=== PATIENT | female | born 1975 | race Caucasian/White ===

== ENCOUNTER 2018-03-12 14:45 | Emergency (ER) | payer OTHER ==
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
[2018-03-12 17:38] VITALS: BP 114/76; PULSE 62; RESP 16; TEMP 98.4
[2018-03-12 17:45] VITALS: O2SAT 100
== END 2018-03-12 17:40 | disposition home or self-care (01) ==
LOC: C.ER 14:45
DX: S46.912A Strain of unspecified muscle, fascia and tendon at shoulder and upper arm level, left arm, initial encounter (principal); V53 Occupant of pick-up truck or van injured in collision with car, pick-up truck or van